=== PATIENT | female | born 1940 | race Asian ===

== ENCOUNTER 2017-03-07 23:37 | Emergency (ER) | payer BC ==
[~2017-03-07] VITALS: Ht 147.3 cm; Wt 59.0 kg
[2017-03-07 23:55] VITALS: BP_SYST 161
[2017-03-08] MEDS ORDERED: cloNIDine HCL 0.1 MG TABLET PO ONE (00:15)
[2017-03-08 00:20] VITALS: BP_SYST 157
== END 2017-03-08 00:20 | disposition home or self-care (01) ==
LOC: SED 23:37
DX: I10 Essential (primary) hypertension (principal)
CPT/HCPCS: 99283